=== PATIENT | male | born 1935 | race Caucasian/White ===

== ENCOUNTER 2017-11-29 08:00 | Inpatient (IN) | payer MEDICARE ==
[~2017-11-29 08:00] MED LIST: ACETAMINOPHEN 1,000 MG/100 ML BTL IV ONE; CEFAZOLIN 2 Gram 2 GM/50 ML BAG IVPB ONE; CELECOXIB 100 MG CAPSULE PO ONE; FAMOTIDINE 20MG TABLET PO ONE; MECLIZINE 25 MG TABLET PO ONE; METOCLOPRAMIDE 10 MG TABLET PO ONE; VANCOMYCIN HCL 1,000 MG in DEXTROSE 5 % IN WATER 250 ML IVPB ONE
[2017-11-29] MEDS ORDERED: HYDROMORPHONE HCL 2 MG/ML VIAL IM PRN ×2 (11:03)
[2017-11-29] MEDS ORDERED: KETOROLAC 30 MG/ML VIAL IVP PRN ×2 (11:03)
[2017-11-29] MEDS ORDERED: ZOLPIDEM TARTRATE 5 MG TABLET PO PRN (11:03)
[2017-11-29] MEDS ORDERED: PROMETHAZINE HCL 12.5 MG in 0.9 % SODIUM CHLORIDE 100ML 50 ML IVPB PRN (11:03)
[2017-11-29] MEDS ORDERED: TRAMADOL HCL 50 MG TABLET PO PRN ×2 (11:03)
[2017-11-29] MEDS ORDERED: ONDANSETRON HCL IV 4 MG/2 ML VIAL IVP PRN (11:03)
[2017-11-29] MEDS ORDERED: ACETAMINOPHEN W/ CODEINE 300MG/60MG TABLET PO PRN ×2 (11:03)
[2017-11-29] MEDS ORDERED: DIPHENHYDRAMINE HCL 25 MG CAPSULE PO PRN (11:03)
[2017-11-29] MEDS ORDERED: ACETAMINOPHEN W/ CODEINE 300MG/30MG TABLET PO PRN ×2 (11:03)
[2017-11-29] MEDS ORDERED: MORPHINE SULFATE 5 MG/ML PFS IVP PRN ×4 (11:03)
[2017-11-29] MEDS ORDERED: METOCLOPRAMIDE HCL 10 MG/2 ML VIAL IVP PRN (11:03)
[2017-11-29] MEDS ORDERED: ACETAMINOPHEN 325 MG TAB PO PRN (11:03)
[2017-11-29] MEDS ORDERED: AL HYDROX/MAG HYDROX 30ML UD PO PRN (11:03)
[2017-11-29] MEDS ORDERED: HYDROCODONE/APAP 5/325MG TABLET PO PRN (11:03)
[2017-11-29] MEDS ORDERED: NALOXONE 0.4 MG/1 ML VIAL IVP PRN (11:03)
[2017-11-29] MEDS ORDERED: BISACODYL 10 MG SUPP RC PRN (11:03)
[2017-11-29] MEDS ORDERED: MAGNESIUM HYDROXIDE 30 ML UDC PO PRN (11:03)
[2017-11-29] MEDS ORDERED: HYDROCODONE/APAP 7.5/325MG TABLET PO PRN ×2 (11:03)
[2017-11-29 13:00] LABS: ABO GROUP O; ANTIBODY SCREEN NEGATIVE (NEGATIVE); RH TYPE NEGATIVE
[2017-11-29 13:13] LABS: INR 1.1
[2017-11-29] MEDS ORDERED: HYDROMORPHONE HCL 2 MG/ML VIAL IV ONE (14:00)
[2017-11-29] MEDS ORDERED: MIDAZOLAM HCL 2MG/2ML VIAL IV ONE (14:00)
[2017-11-29] MEDS ORDERED: ONDANSETRON HCL IV 4 MG/2 ML VIAL IVP ONE ×2 (14:00→22:30)
[2017-11-29] MEDS ORDERED: BUPIVACAINE 0.5% W/EPI MPF 30 ML VIAL IVP ONE (14:00)
[2017-11-29] MEDS ORDERED: VANCOMYCIN HCL 1 GM VIAL IVPB ONE (14:00)
[2017-11-29] MEDS ORDERED: FENTANYL PF 100MCG/2ML VIAL IV ONE (14:00)
[2017-11-29] MEDS ORDERED: TRANEXAMIC ACID 1,000 MG/10 ML ML IV ONE (14:00)
[2017-11-29] MEDS ORDERED: LIDOCAINE 2% MDV (20MG/ML) 20ML VIAL IV ONE (14:00)
[2017-11-29] MEDS ORDERED: PROPOFOL 10 MG/ML VIAL IV ONE (14:00)
[2017-11-29] MEDS ORDERED: DIPHENHYDRAMINE HCL IV 50 MG/ML VIAL IVP ONE (14:00)
[2017-11-29] MEDS ORDERED: KETOROLAC 30 MG/ML VIAL IVP ONE (14:00)
[2017-11-29] MEDS ORDERED: PNEUM 13-VAL/PF 0.5 ML IM ONE (18:31)
[2017-11-29] MEDS ORDERED: DEXTROSE 5 % AND 0.9 % NACL 1,000 ML IV PRN (19:00)
[2017-11-29] MEDS: GABAPENTIN 300 MG CAPSULE PO SCH (21:25)
[2017-11-29] MEDS: DOCUSATE SODIUM 100 MG CAPSULE PO SCH (21:26)
[2017-11-29] MEDS: FERROUS SULFATE 325 MG TAB PO SCH (21:27)
[2017-11-29] MEDS: HYDRALAZINE HCL 25 MG TABLET PO SCH (21:27)
[2017-11-29] MEDS: LOSARTAN POTASSIUM 25 MG TABLET PO SCH (21:27)
[2017-11-29] MEDS ORDERED: MIRTAZAPINE 15 MG TABLET PO SCH (22:00)
[2017-11-29] MEDS ORDERED: ATORVASTATIN 20 MG TABLET PO SCH (22:00)
[2017-11-29] MEDS ORDERED: TERAZOSIN HCL 1 MG CAPSULE PO SCH (22:00)
[2017-11-30] MEDS: HYDROCODONE/APAP 5/325MG TABLET PO PRN ×2 (01:01→12:53)
[2017-11-30] MEDS: VANCOMYCIN HCL 1,000 MG in DEXTROSE 5 % IN WATER 250 ML IVPB SCH ×4 (01:08→13:16)
[2017-11-30 06:41] LABS: HEMATOCRIT 30.5 % (42.0-52.0); HEMOGLOBIN 9.6 gm/dl (14.0-18.0)
[2017-11-30] MEDS ORDERED: PANTOPRAZOLE SODIUM 40 MG TABLET PO SCH (07:00)
--- NOTE | 2017-11-30 07:44 | Operative Note ---
DATE OF SURGERY: 11/29/2017. PREOPERATIVE DIAGNOSIS: ENDSTAGE RIGHT KNEE ARTHROSIS. POSTOPERATIVE DIAGNOSIS: ENDSTAGE RIGHT KNEE ARTHROSIS. OPERATION: Right total knee arthroplasty. SURGEON: Robi Blanco M.D. ANESTHESIA: Spinal, Tamra Carter CRNA. COMPLICATIONS: None. ESTIMATED BLOOD LOSS: Minimal. TOURNIQUET TIME: Approximately 60 minutes. OPERATIVE FINDINGS: [id number] medial compartment arthrosis. COMPONENTS PLACED: A total of 2.0 gm vancomycin cement, [employer] Journey II Oxinium size 5 femoral component, a size 5 tibial baseplate, an 11 mm thick tibial poly insert, and a 35 mm cemented patellar component. INDICATIONS: This is an 82-year-old male who has had persistent pain and dysfunction in his knee for several years. He has failed nonoperative treatment , and he was scheduled for knee replacement. I explained to him all risks and benefits of surgery in detail for the diagnosis and procedures including but not limited to infection, nerve injury, vessel injury, persistent pain, stiffness, numbness and tingling in his knee, periprosthetic fracture, need for resection arthroplasty should the components become infected or loosened, blood clot and the need for anticoagulation to prevent blood clots, and the risks associated with medications. All of his questions were answered. The treatment and course were outlined and he agreed to proceed. PROCEDURE: The patient brought to the operating room. He was placed in the supine position and was prepared for surgery. Spinal anesthesia was induced. His right lower extremity and knee were prepped and draped in sterile fashion. The right knee was prepped again with ChloraPrep and draped. Intraoperative time out was performed. Next, the leg was exsanguinated with Esmarch and the knee was flexed. The tourniquet was inflated to 250 mm Hg pressure. Next, the skin and subcutaneous tissues were dissected down to include the capsule. Incised the capsule medially around the medial border of the patella to the tibial tubercle. Incised the vastus medialis in line with its fibers in a mid vastus approach. I everted the patella and partially resected the retropatellar fat. I everted the patella and flexed the knee. He had bone-on- bone medial compartment arthrosis. Next we drilled an intracondylar drill hole and inserted the intramedullary guide kaitlin. I used the 60-degree cutting block to line up the distal femoral condyles and pinned it in place in the +2.0 mm position, and then we cut the distal femoral condyles. Next I placed the sizing jig on the distal femoral condyle and sized it to be right on size 5. Through the previously-placed pin holes I placed the size 5 cutting jig. We dialed in the anterior cut so it would come out flush without notching. We cut that and it was a good flush cut. We then pinned it and cut the remaining chamfer cuts in the usual fashion. Next I placed a size 5 trial femoral component, centered and pinned it. I removed osteophytes off the periphery and inserted the femoral resection collet. I reamed out with a box osteotome the cruciate bone block. Next, attention was turned to the tibia. Placed the extra-alignment jig on the tibia, seated the spikes in the intertubercular groove two fingerbreadths distal to the anterior tibial cortex. Referenced for a 7.0 mm cut off the lateral lateral plateau. We pinned it in place provisionally with two anterior- posterior pins. Next we rechecked alignment of the drop kaitlin, centering it on the tibial anatomic access. We then cross pinned the cutting jig to complete its fixation and then cut the tibia. Next, we removed osteophytes off the posterior femoral condyles and checked the flexion and extension gaps. Basically, I removed up to a size 11 mm thick poly insert. This allowed for 2.0 to 3.0 mm of varus and valgus laxity in flexion and extension. Overall alignment with cuts in extension was in anatomic valgus orientation with alignment rods centered on the hip joint and ankle joint. Next we took the knee in flexion and sized the tibial baseplate to be size 5. We replaced all trial components and set the rotation tibial base plate again in extension using the alignment kaitlin sitting on the hip joint and ankle joint. Marked electrocautery shields off the laser shields of the tibial baseplate and the anterior tibial cortex. Attention was then turned to the patella. I measured the patella to be 22 mm. I set the cutting jig at 12 mm to allow for a 9.0 mm thick poly insert. Cut the patella and it was right on 12 to 13. We then sized it. I medialized as much as possible and drilled three peg holes. I placed the trial patellar component. With range of motion the patella tracked nicely with full extension and flexion to 150 degrees. Next I mixed cement. I took the knee in flexion. I seated the tibial baseplate off the previously placed electrocautery shields. I pinned it in place and reamed out and keel punched the keel hole. I placed a bone plug in the femoral canal hole. I placed the drill bit in the tibial hole. I changed gloves and brought in a clean sheet. I copiously irrigated all bony surfaces and exposed the proximal tibia. I precoated both surfaces and then impacted down down the tibial component and then the femoral component. I placed the trial poly liner and held the knee in extension. I then clamped down the patellar component until it hardened. Once the cement hardened, I took the knee in flexion. I distracted the knee with a bone hook and sponge. I removed all excess cement off the edge of the components and removed the trial tibial component. We then injected with several sticks of 0.5% Marcaine with epinephrine, 2.0 gm tranexamic acid, and Exparel mixture around the entire deep and periphery capsule, medial and lateral periosteum, muscular planes, and subcutaneous planes with our mixture. Next, we inserted the tibial poly insert and verified it was interlocked medially and laterally. I found our range of motion was still the same. We then irrigated and closed the vastus split and capsule with running #2 Quill suture. I closed the skin deep with 2-0 Vicryl, and a zip line was applied. A sterile dressing was applied and the tourniquet was taken down and an Kaushal wrap was applied. The patient tolerated the procedures well. No intraoperative complications. Sponge, needle, and blade counts correct. Recovery room stable, neurovascularly intact. He was discharged to the floor for a total knee pathway. He will then be discharged home in one to two days. JOB NUMBER: [id number] cc: Jessica Romero
[2017-11-30] MEDS ORDERED: VANCOMYCIN HCL 1 GM VIAL IVPB ONE (09:07)
[2017-11-30] MEDS ORDERED: TRANEXAMIC ACID 1,000 MG/10 ML ML IV ONE (09:07)
[2017-11-30] MEDS ORDERED: BUPIVACAINE 0.5% W/EPI MPF 30 ML VIAL IVP ONE (09:07)
[2017-11-30] MEDS ORDERED: BUPIVACAINE LIPOSOME 266MG/20ML VIAL IV ONE (09:07)
[2017-11-30] MEDS ORDERED: ALLOPURINOL 100 MG TAB PO SCH (10:00)
[2017-11-30] MEDS ORDERED: ATENOLOL 25 MG TABLET PO SCH (10:00)
[2017-11-30] MEDS ORDERED: RIVAROXABAN 10 MG TABLET PO SCH (10:00)
[2017-11-30] MEDS ORDERED: CELECOXIB 100 MG CAPSULE PO SCH (10:00)
[2017-11-30] MEDS ORDERED: HYDROCHLOROTHIAZIDE 25 MG TABLET PO SCH (10:00)
[2017-11-30] MEDS ORDERED: CLOPIDOGREL 75MG TABLET PO SCH (10:00)
[2017-11-30] MEDS: FERROUS SULFATE 325 MG TAB PO SCH (10:53)
[2017-11-30] MEDS: DOCUSATE SODIUM 100 MG CAPSULE PO SCH (10:54)
[2017-11-30] MEDS: LOSARTAN POTASSIUM 25 MG TABLET PO SCH (10:56)
[2017-11-30] MEDS: GABAPENTIN 300 MG CAPSULE PO SCH ×2 (10:56→17:42)
[2017-11-30] MEDS: HYDRALAZINE HCL 25 MG TABLET PO SCH (10:58)
--- NOTE | 2017-11-30 10:58 | Rehab Evaluation ---
Patient Information - Patient Information Diagnosis: OA right knee Ordered Treatment: PT Evaluate and Treat Status: Initial Evaluation Surgery: Yes (TKA right) Date of Surgery: 11/29/17 Past Medical/Surgical Hx: PAST MEDICAL/SURGICAL HISTORY Past Surgical History cardiac stents x's 2 -2016 c scope PMH - Respiratory Hx Bronchitis Yes Hx Pneumonia Yes: 2011 Hx Pulmonary Embolism Yes: 2011 had pneumpnia at the time Hx Sleep Apnea Yes Hx of CPAP Yes Hx of URI Yes: recent sinus infection/bronchitis finished with ABX feeling better Hx of SOB Yes: with exertion PMH - Cardiovascular Hx Cardiovascular Disorders Yes Hx Abnormal EKG Yes Hx Cardiac Catheterization Yes Hx Hypertension Yes: on meds good control Hx Coronary Artery Disease Yes Hx Coronary Stent Yes: Sep 2016 x's 2. 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 PMH - GI Hx Gastrointestinal Disorders Yes Hx Gastroesophageal Reflux Yes: on meds PMH - Hx Genitourinary Disorders Yes Hx Prostate Problems Yes: enlarged prostate PMH - Endocrine Hx Endocrine Disorders No PMH - Musculoskeletal Hx Musculoskeletal Disorders Yes Hx Arthritis Yes Hx Gout Yes PMH - Psych Hx Psychiatric Problems Yes Hx Anxiety Yes: at times PMH - Hematology/Oncology Hx Hematology/Oncology Yes Disorders Hx Cancer Yes: prostate Hx Radiation Therapy Yes Hx Clotting Problems Yes: on coumadin Comment: hormone tx Social History: Detail (Lives with spouse in single story house, has three steps to get into house, none in house. Has handrail to get into house but doesn 't like using walker for other side so recommended cane. Has tub shower combination and standard height toilet. Retired so not concerned about getting back to work. will be able to help at home and having home therapy initially.) Precautions: [place], Fall, Other (Itching and pain in back of unknown origin. ) - Time With Patient Total Time Spent With Patient (Min): 30 Treatment Procedures: Detail (Patient seen in room, on precautions since don't know what skin irritation from so worked with patient in gloves. Helped patient get another gown around himself to use as robe and barrier. Able to perform exercises for right knee and reviewed quad, glut and ham sets, heel slides, flexion and extension of knee while sitting in chair and SLR, ankle pumps. Patient able to move sit to stand without difficulty correctly then ambulated into bathroom independently, used commode independently. After washed hands, able to walk with FWW out of room to stairs at nurse's station about 50 feet then able to ambulate down three steps with rail and folded walker for support and CGA with correct technique. Pivoted around then back up three steps with rail and folded walker for support and CGA, WBAT. Patient does not like using walker so suggested cane at home for steps. Ambulated all the way back to room without a rest stop. Left patient in chair with right LE supported on stool with pillow, cryocuff on knee, call light and phone close.) Subjective Information - Subjective Information Per Patient Objective Data - Pain Pain Present: Yes Pain Scale Used: Numeric (1 - 10) (2-3/10 only) - Mental Status Patient Orientation: Oriented x3 - Visual Perception Appears within normal limits for therapeutic activities - ROM Within normal limits (except right knee 0-60 degrees.) - Strength/Tone Within normal limits (except right knee 3/5 at this time) - Coordination Appears within normal limits for therapeutic activities - Bed Mobility Independent - Transfers Independent - Balance Balance Sitting: Good Balance Standing: Good - Sensation Intact - Gait Detail (Using FWW safely for gait and able to walk at least 50 feet times two and walk on stairs without rest break WBAT.) - Special Tests No Therapy Assessment - Therapy Assessment Detail (Patient doing quite well today and has really passed skills to PT's satisfaction.) Patient Education - Patient Education Teaching Topic: Equipment Use, Exercise/Activity Response: Return Demonstration Teaching Method: Discussion, Demonstration Teaching Recipient: Patient Barriers To Learning: None Problem List - Problem List Physical Therapy Problem List: Detail (Patient has some decreased ROM at right knee as a result of surgery which is expected. Endurance a little low yet. Pain well controlled.) Goals - Goals Physical Therapy Goals: Patient will be safe to ambulate independently with walker or other assistive device community distances, independent into/out of bed and with exercises, gait on steps as needed for going home safely. Prognosis - Prognosis Good (Patient has already met PT goals; should continue to improve with function when goes home.) Plan - Plan Physical Therapy Plan: Patient scheduled BID day after surgery and will see this afternoon if still here but has passed PT skills and could go home early if doctor releases him.
--- NOTE | 2017-11-30 14:11 | Physical Therapy Tx Note ---
Physical Therapy Tx Note - Treatment Note Tolerated: Good (Attempted to see patient to increase endurance with gait and mobility but getting last IV of Vancomycin and having a problem with effusion into surrounding tissues so needs to have a new site chosen. Also released him to go home as soon as he has finished all necessary nursing items. Patient has passed all physical therapy skills needed to be discharged home so we will d /c PT at this time.) Total Time Spent With Patient: 5 Physical Therapy Tx Note: Detail (As above, no treatment this afternoon.) Physical Therapy Problem List: Detail (Patient has some decreased ROM at right knee as a result of surgery which is expected. Endurance a little low yet. Pain well controlled.) Physical Therapy Goals: Patient will be safe to ambulate independently with walker or other assistive device community distances, independent into/out of bed and with exercises, gait on steps as needed for going home safely. Prognosis: Good (Has met all goals and discharge from PT.) Physical Therapy Plan: Patient scheduled BID day after surgery and will see this afternoon if still here but has passed PT skills and could go home early if doctor releases him.
--- NOTE | 2017-11-30 16:15 | Rehab Evaluation ---
Patient Information - Patient Information Diagnosis: OA right knee Ordered Treatment: OT Evaluate and Treat Status: Initial Evaluation Surgery: Yes (TKA right) Date of Surgery: 11/29/17 Past Medical/Surgical Hx: PAST MEDICAL/SURGICAL HISTORY Past Surgical History cardiac stents x's 2 -2016 c scope PMH - Respiratory Hx Bronchitis Yes Hx Pneumonia Yes: 2011 Hx Pulmonary Embolism Yes: 2011 had pneumpnia at the time Hx Sleep Apnea Yes Hx of CPAP Yes Hx of URI Yes: recent sinus infection/bronchitis finished with ABX feeling better Hx of SOB Yes: with exertion PMH - Cardiovascular Hx Cardiovascular Disorders Yes Hx Abnormal EKG Yes Hx Cardiac Catheterization Yes Hx Hypertension Yes: on meds good control Hx Coronary Artery Disease Yes Hx Coronary Stent Yes: Sep 2016 x's 2. 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 reported he was independent with all I/ADL's.) Social History: Detail (Lives with spouse in single story house, has three steps to get into house, none in house. Has handrail to get into house but doesn 't like using walker for other side so recommended cane. Has tub shower combination and standard height toilet. Retired so not concerned about getting back to work. will be able to help at home and having home therapy initially.) Precautions: [place], Fall, Other (Itching and pain in back of unknown origin. ) - Time With Patient Total Time Spent With Patient (Min): 25 Objective Data - Mental Status Patient Orientation: Oriented x3 - Visual Perception Appears within normal limits for therapeutic activities - ROM Within normal limits (BUE WNL) - Strength/Tone Within normal limits (BUE WNL MMT 4+/5) - Coordination Appears within normal limits for therapeutic activities - Bed Mobility Independent - Transfers Independent (sit<>stand EOB to walker) - Balance Balance Sitting: Good Balance Standing: Fair - Sensation Intact (BUE fingertips light touch intact) - ADL's/IADL's Detail (Pt. declined to dress at this time d/t back itching. Educ. provided in adaptive dressing techniques and use of chief of internal medicine. Pt. does not have chief of internal medicine currently, but family stated they would purchase one for him. Pt. plans to seek assistance from , and take sponge baths until he feels safe and strong enough to perform independently.) Therapy Assessment - Therapy Assessment Detail (In-pt. OT services not recommended at this time. Pt. has a positive support system and assistance if needed from and daughter. Pt. is aware of AE and adaptive techniques, and has a good home environment set-up.) Patient Education - Patient Education Teaching Topic: Equipment Use Response: Verbalize Understanding Teaching Method: Discussion Teaching Recipient: Patient, Family, Significant Other Barriers To Learning: None Problem List - Problem List Physical Therapy Problem List: Detail (Patient has some decreased ROM at right knee as a result of surgery which is expected. Endurance a little low yet. Pain well controlled.) Goals - Goals Physical Therapy Goals: Patient will be safe to ambulate independently with walker or other assistive device community distances, independent into/out of bed and with exercises, gait on steps as needed for going home safely. Prognosis - Prognosis Good Plan - Plan Physical Therapy Plan: Patient scheduled BID day after surgery and will see this afternoon if still here but has passed PT skills and could go home early if doctor releases him. Occupational Therapy Plan: D/C from OT services. Educ. was provided to call if pt. has questions when he arrives home.
== END 2017-11-30 16:06 | disposition home or self-care (01) | DRG 470 ==
LOC: MEDSURG 10:20
PROVIDERS: ADMIT Orthopaedic Surgery; ATTEND Orthopaedic Surgery
PROC: 0SRC069 Replacement of Right Knee Joint with Oxidized Zirconium on Polyethylene Synthetic Substitute, Cemented, Open Approach (ICD-10-PCS; principal; 2017-11-29 14:00)
DX: M17.11 Unilateral primary osteoarthritis, right knee (principal); I25.10 Atherosclerotic heart disease of native coronary artery without angina pectoris; Z79.01 Long term (current) use of anticoagulants; I10 Essential (primary) hypertension; E78.00 Pure hypercholesterolemia, unspecified; M10.9 Gout, unspecified; Z86.711 Personal history of pulmonary embolism
CPT/HCPCS: 85014; 85018; 85610; 86850; 86900; 86901; 90670; 94760; 97165; C1776; J1200; J1885; J2405; J7042; J7060